=== PATIENT | female | born 1955 | race Caucasian/White ===

== ENCOUNTER 2017-08-19 22:51 | Emergency (ER) | payer MEDICAID ==
[~2017-08-19] VITALS: Ht 162.6 cm; Wt 56.7 kg
[2017-08-19 22:52] VITALS: BP 127/87
[2017-08-19] MEDS ORDERED: FLUO20CA36 PO (23:07)
[2017-08-19] MEDS ORDERED: LEVO50TA8 PO (23:07)
[2017-08-19] MEDS ORDERED: TDAP [DIPH/PERTUSSIS/TET] 0.5 ML VIAL IM ONE (23:45)
[2017-08-20] MEDS ORDERED: TDAP [DIPH/PERTUSSIS/TET] 0.5 ML VIAL IM ONE
--- NOTE | 2017-08-20 00:25 | NUR ---
DR. ARANDA AT BEDSIDE FOR LAC REPAIR.
== END 2017-08-20 00:52 | disposition home or self-care (01) ==
LOC: ER 23:00
DX: S61.012A Laceration without foreign body of left thumb without damage to nail, initial encounter (principal); E03.9 Hypothyroidism, unspecified; F32.9 Major depressive disorder, single episode, unspecified; F10.10 Alcohol abuse, uncomplicated; Z23 Encounter for immunization; Z88.8 Allergy status to other drugs, medicaments and biological substances; W25.XXXA Contact with sharp glass, initial encounter; Y93.89 Activity, other specified; Y92.89 Other specified places as the place of occurrence of the external cause; Y99.8 Other external cause status
CPT/HCPCS: 73140-TC; 90715; A4606; A6402; Z7610